=== PATIENT | female | born 1970 | race American Indian/Alaskan Native ===

== ENCOUNTER 2016-11-13 13:24 | Outpatient (CLI) | payer BC ==
--- NOTE | 2016-11-13 16:16 | Mammography Report ---
BILATERAL DIGITAL SCREENING MAMMOGRAM with CAD: 11/13/16 13:24:00 CLINICAL: Routine screening. COMPARISON:09/01/13 FINDINGS: The breasts are heterogeneously dense, which may obscures small masses. A left asymmetry on the CC view requires additional imaging.No architectural distortion or suspicious calcifications.The right breast is negative. IMPRESSION: Left asymmetry requiring further workup. BI-RADS CATEGORY: 0 -- Additional Imaging Evaluation Required RECOMMENDATION: Recall for a left spot compression CC view and left breast ultrasound of needed. ACR BI-RADS MAMMOGRAPHIC CODES: 0 = Needs additional imaging evaluation; 1 = Negative; 2 = Benign; 3 = Probably benign; 4 = Suspicious; 5 = Malignant; 6 = Known biopsy-proven malignancy COMMENT: 1. Dense breast tissue, i.e., adenosis, fibrocystic changes, etc., may obscure an underlying neoplasm. 2. Approximately 10% of cancers are not detected with mammography. 3. A negative mammography report should not delay biopsy if a clinically suspicious mass is present. COMMENT: Patient follow-up letters are generated via our [email or web address] application.
== END 2016-11-13 13:25 | disposition home or self-care (01) ==
LOC: SPVWC 13:24
PROVIDERS: ATTEND Obstetrics & Gynecology
DX: Z12.31 Encounter for screening mammogram for malignant neoplasm of breast (principal); I10 Essential (primary) hypertension; E78.00 Pure hypercholesterolemia, unspecified; J45.909 Unspecified asthma, uncomplicated; F41.9 Anxiety disorder, unspecified
CPT/HCPCS: 77067; G0202

== ENCOUNTER 2016-11-24 12:50 | Outpatient (CLI) | payer BC ==
--- NOTE | 2016-11-25 08:06 | Magnetic Resonance Report ---
MRI BRAIN WITH/WITHOUT CONTRAST: History: Dizziness and giddiness. Comparison: MR brain with and without contrast dated 04/12/14. Technique: Multiple T1 and T2 weighted images were obtained in multiple planes. Axial diffusion and gradient imaging was performed. Post contrast T1 images in two planes were obtained following IV gadolinium. Findings: The brain parenchyma signal intensity and its cruz-white interface are normal on all sequences. No abnormal parenchymal signal. No diffusion restriction, hemorrhage, mass effect or extra-axial fluid collection. There is moderate artifact in the right posterior temporal region on the diffusion sequence of unknown origin. Ventricular size is normal and symmetric. The basal cisterns are clear. Sella turcica and contents are within normal limits. The brainstem and cerebellar hemispheres are within normal limits. The fourth ventricle is midline. The paranasal sinuses and mastoid air cells are well aerated. Normal flow voids are identified in the appropriate vessels at the [place] of [place]. No abnormal enhancement is identified following IV gadolinium. Impression: Unremarkable MRI brain with and without contrast. No change since 04/12/14.
== END 2016-11-24 12:51 | disposition home or self-care (01) ==
LOC: SPVIMAG 12:50
PROVIDERS: ATTEND Internal Medicine
DX: R42 Dizziness and giddiness (principal); R51 Headache; I10 Essential (primary) hypertension; E78.00 Pure hypercholesterolemia, unspecified; J45.909 Unspecified asthma, uncomplicated; F41.9 Anxiety disorder, unspecified
CPT/HCPCS: 70553; A9577

== ENCOUNTER 2016-11-26 13:19 | Outpatient (CLI) | payer BC ==
--- NOTE | 2016-11-26 14:14 | Mammography Report ---
Spot compression magnification of focal asymmetry left breast followed by sonographic examination: Findings: There is persistence of circumscribed 4 mm density noted on spot magnification view and the margins appear circumscribed. No microcalcification. Sonographic examination is a cyst at 11:00 position 4 cm from nipple measuring 0.7 x 0.4 x 0.6 cm probably corresponding to the density. There is a second cyst identified at 6:00 position 4 cm from nipple measuring 0.4 x 0.2 x 0.6 cm. The cysts appear to be benign. Not sure cyst at 11:00 position corresponds to the density of mammogram. Impression: Probably benign density. 6 month followup with left breast mammogram and if necessary sonogram. BI-RADS CATEGORY: 3 = Probably benign ACR BI-RADS MAMMOGRAPHIC CODES: 0 = Needs additional imaging evaluation; 1 = Negative; 2 = Benign; 3 = Probably benign; 4 = Suspicious; 5 = Malignant; 6 = Known biopsy-proven malignancy COMMENT: 1. Dense breast tissue, i.e., adenosis, fibrocystic changes, etc., may obscure an underlying neoplasm. 2. Approximately 10% of cancers are not detected with mammography. 3. A negative mammography report should not delay biopsy if a clinically suspicious mass is present.
== END 2016-11-26 13:20 | disposition home or self-care (01) ==
LOC: SPVWC 13:19
PROVIDERS: ATTEND Obstetrics & Gynecology
DX: N60.02 Solitary cyst of left breast (principal); E78.00 Pure hypercholesterolemia, unspecified; J45.909 Unspecified asthma, uncomplicated; I10 Essential (primary) hypertension
CPT/HCPCS: 76642; G0206